=== PATIENT | male | born 1940 | race Caucasian/White ===

== ENCOUNTER 2017-05-14 08:41 | Day surgery (SDC) | payer MEDICARE ==
[~2017-05-14] VITALS: Ht 186.7 cm; Wt 98.9 kg
[2017-05-14] VITALS (7 sets, daily range): BP systolic 109–133; BP diastolic 50–58; PULSE 47–54; RESP 14–18; O2SAT 92–97
[~2017-05-14 08:41] MED LIST: ALBU8.5H2 INHALATION; CITA40TA PO; Clindamycin Inj 600 MG in IV Premix 1 EACH IV ONE; ESZO2TAB38 PO; FLUT9.9S NS; HYDR12.55 PO; KETACONAZOLE SHAMPOO TP; KETACONAZOLE TP; Lactated Ringer's 1,000 ML IV SCH; OXYC-466 PO; PANT40TA2 PO; RNT300T PO; TAMS0.4C98 PO; TRAZ-118 PO; hydrocortisone cream TP
[2017-05-14] MEDS ORDERED: Dexamethasone 4 mg/mL Inj ONE (08:42)
[2017-05-14] MEDS ORDERED: Rocuronium 10 mg/mL 5 mL Inj ONE (08:42)
[2017-05-14] MEDS ORDERED: fentaNYL-PF 50 mCg/mL 2 mL Inj ONE (08:42)
[2017-05-14] MEDS ORDERED: Neostigmine 1 mg/mL 10 mL Inj ONE (08:42)
[2017-05-14] MEDS ORDERED: EPHEDrine/NS 5 mg/mL 5 mL Syringe ONE (08:42)
[2017-05-14] MEDS ORDERED: Phenylephrine/NS 100 mCg/mL 10 mL Syringe IVPUSH ONE (08:42)
[2017-05-14] MEDS ORDERED: Propofol 10,000 mCg/mL 20 mL Inj ONE (08:42)
[2017-05-14] MEDS ORDERED: Glycopyrrolate 0.2 MG/ML 1mL Inj ONE ×2 (08:42)
[2017-05-14] MEDS ORDERED: Ondansetron 2 mg/mL 2 mL Inj ONE (08:42)
[2017-05-14] MEDS: Lactated Ringer's 1,000 ML IV SCH ×2 (08:59→11:03)
[2017-05-14] MEDS ORDERED: GABA600T2 PO (09:08)
[2017-05-14] MEDS ORDERED: Lactated Ringer's 500 ML IV PRN (10:04)
[2017-05-14] MEDS ORDERED: Lactated Ringer's 1,000 ML IV SCH (10:04)
--- NOTE | 2017-05-14 10:04 | PCM.HPANE ---
Patient Data Surgeon Admitting Provider: Attending Provider:Yvon Herron DPM Primary Care Physician:Tere Franco DO Other Provider:Saumya Gaona Anesthesia Reason for Visit Right Ankle Post-Traumatic Arthritis, Instability Ht/WT & BMI Height (Feet): 6 Height (Inches): 0 Weight (Kilograms): 102.9 Body Mass Index 30.00 Allergies Coded Allergies: Penicillins (Verified Allergy, Severe, ANAPHYLAXIS, 05/11/17) lisinopril (Verified Allergy, Severe, I swell up , 05/11/17) NSAIDS (Non-Steroidal Anti-Inflamma (Verified Allergy, Intermediate, INTOLERANT OF R/T PUD, 05/11/17) metoclopramide (Verified Adverse Reaction, Severe, Agitation, 05/11/17) Per patient Anesthesiologist told him it made him 'Crazy' morphine (Verified Adverse Reaction, Severe, Intravenous MS causes vomiting, 05/11/17) Uncoded Allergies: HIGH FRACTOSE CORN SYRUP (Adverse Reaction, Severe, HEARTBURN,DIARRHEA, 07/26) Past Anesthesia History Anesthesia History: Positive for:: Anesthesia Reactions (SLOW TO WAKE UP-HX OF PANIC ATTACKS PRIOR TO ANESTHETICS), Denies:: Abnormal Airway, Difficult Intubation, Fam Anesthesia Reaction, Fam Malignant Hypertherm, Malignant Hyperthermia Additional Information: Reports history of cardiac arrest under GA due to anxiety ~ 18 year ago. Has had multiple anesthetics since then without problems. Denies any history of MH or any family history of MH. Diabetes History Hx Diabetes?: No MRSA MRSA: No Medications Home Meds Incl Beta [place]: No Reported Medications Gabapentin 600 Mg Yuryrk904 Mg PO TID #90 05/14/17 Ranitidine (Zantac)300 Mg Jkzydl886 Mg PO DAILY Ref 0 03/20/16 Trazodone 100 Mg Uwaiyc235 Mg PO HS Ref 0 03/20/[address] (Protonix)40 Mg Vhglfv83 Mg PO DAILY Ref 0 03/20/16 Albuterol HFA (Proair HFA)8.5 Gm Hfa.aer.ad2 Puffs INHALATION Q4H #1 INHALER 03/20/16 oxyCODONE-Acetaminophen 10-325 mg 1 Each Tablet1 Tablet PO Q8H PRN For Pain Ref 0 03/20/16 Eszopiclone (Lunesta)2 Mg Tablet2 Mg PO HS PRN For Sleep 03/20/16 [hydrocortisone cream] No Conflict Check1 Applic TP M,W,F 2.5% 03/20/16 [ketaconazole cream] No Conflict Check1 Applic TP BID 2% 03/20/16 [ketaconazole shampoo] No Conflict Check1 Applic TP 2x/wk 2% 03/20/16 Hydrochlorothiazide 12.5 Mg Snfxoj49.5 Mg PO DAILY 30 Days Ref 0 03/20/16 Fluticasone Propionate (Flonase Allergy Relief)50 Mcg/Actuation [place].susp9.9 Ml NS prn 03/20/16 Tamsulosin (Flomax)0.4 Mg Capsule0.4 Mg PO DAILY Ref 0 03/20/16 Citalopram Hydrobromide (Celexa)40 Mg Enfuws98 Mg PO DAILY Ref 0 03/20/16 Discontinued Reported Medications Guaifenesin/Codeine Phosphate (Guaifenesin AC Cough Syrup)473 Ml Mgkygb86 Ml PO BID PRN prn 03/20/16 Gabapentin 100 Mg Tjvriyw830 Mg PO TID 30 Days Ref 0 03/20/16 Tadalafil (Cialis)20 Mg Nlzibr96 Mg PO PRN PRN ed Ref 0 As directed by physician. 03/20/16 Discontinued Scripts Prednisone (PredniSONE)20 Mg Btnlvf78 Mg PO DAILY #12 TABLET Prov:Regino Zheng MD 07/31/16 History History of ENT Problems?: Yes HEENT History: Positive for:: Dysphagia (HX OF) Hearing Problem Sinus Problem (S/P RHINOPLASTY) Denies:: Abnormal Airway Cataracts (removed) Difficult Intubation Glaucoma TMJ Denture Type: None Teeth Condition: Within Normal Limits Hx of Heart Problems?: Yes Cardiovascular History: Positive for:: Abdominal Aortic Aneurism (S/P AAA RPR W/ STENT) Chest Pain (DEEMED NON-CARDIAC, R/T REFLUX 10/2011) Hypertension (hyperlipidemia) Denies:: AICD Atrial Fibrillation Cardiac Surgery Congestive Heart Failure Coronary Artery Disease Edema Heart Murmur Irregular Heartbeat Pacemaker Peripheral Vascular Rheumatic Fever Thrombophlebitis Valvular Heart Disease Hx of Respiratory Problem?: Yes Respiratory History: Positive for:: Cough (allergy related) 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) Pneumonia (FREQUENT PNEUMONIA/BRONCHITIS) Use of Inhalers / NEBS (Pro Air) Denies:: Asthma COPD Chest Surgery Emphysema Hemoptysis Pulmonary Embolism Tuberculosis Use of C-PAP Machine Hx Neurologic Problems?: Yes Neurological History: Positive for:: Headaches (POST-TRAUMATIC/HX CONCUSSION) Denies:: Alzheimer's Disease CVA Dementia Dizziness Multiple Sclerosis Parkinson's Disease Seizures TIA Hx of GI Problems?: Yes Hx of Problems?: Yes Genitourinary History: Positive for:: Kidney Stones (S/P LT CYSTO/STENT/ESWL) Denies:: HX of Hemodialysis Urinary Tract Infection HX of Peritoneal Dialysis: No Male Hx: Positive for:: Prostate Problems (MILD BPH) Denies:: Scrotal Mass Testicular Surgery Skin History: Positive for:: History Skin Disorders? (INTERMITTANT RASHES, DRY SKIN) Denies:: Pressure Ulcers Hx Musculoskeletal Problems?: No Musculoskeletal History: Positive for:: Back Injury (C/OF CHRONIC LOW BACK PAIN-USES TENS PRN) Degenerative Joint Joint Replacement (S/P LT TKA X2,RT TKA) Musculoskeletal Trauma (HX OF L3,L5 FX S/P RT ROTATOR CUFF RPR,LT WRIST FUSION,I&D LT WRIST) Osteoarthritis Denies:: Fibromyalgia Myasthenia Gravis Rheumatoid Arthritis Systemic Lupus Hx of Psycho/Social Problems?: Yes Psycho Social History: Positive for:: Anxiety Hx Depression Hx Surgeries?: Yes (BILAT TKA'S,GANGLION EXC-HAND,TRIGGER FINGER,AAA RPR,BACK- NECK-SKULL SURG.,) Hx Any Other Health Problems?: Yes Other History: Positive for:: Hospitalization (PNEUMONIA, CONCUSSION) Denies:: Cancer Endocrine Disease (C/OF NIGHT SWEATS) Thyroid Disease History Blood Transfusions: Positive for:: Accept Blood Products? Denies:: Blood Transfusions Hx Diabetes: No Hx Alcohol Use: NoHx Substance Use: No Smoking Status: Never Smoker Have You Smoked inLast 12 mo: No Stop/Bang S-Snoring: Do You Snore Loudly: No T-Tired: feel tired, fatigued: No O-Obsered: Observed not breath: No P-Blood Pressure: treated: No B- Body Mass Index > 35 kg/m2: Yes A- Age over 50: Yes N- Neck Large Circumference: No G- Gender Male: Yes ANITA Total Score: 3 ANITA Risk Assessment: High Risk, =/>3 Yes Risk Assessment Category Category 1A: Patient has history of documented sleep apnea, and HAS NOT received any narcotic, sedative or anesthesia administration during this stay. Category 1B: Patient has history of documented sleep apnea, and HAS received any narcotic , sedative or anesthesia administration during this stay Category 2: Patient has SUSPECTED Obstructive Sleep Apnea, and HAS received any narcotic , sedative or anesthesia administration during this stay. Category 3: Patient has SUSPECTED Obstructive Sleep Apnea and HAS NOT received narcotic, sedative or anesthesia administration during this stay. Category 4: Outpatient in Procedural Areas with known sleep apnea or who screen positive for High Risk via the STOP/BANG questionnaire. Exam Exam General Appearance: Alert HEENT/AIRWAY: MP 1, Neck Movement (FROM, 3 FB) Lungs: Clear to Auscultation Heart: Regular Rate/Rhythm Meds/Labs/Diagnostics Admission Meds Current Medications Lactated Ringer's (Lr) 1,000 ml @ 120 mls/hr Q8H20M IV Last administered on 08:59; Start 05/14/17 at 05:00; Stop 05/14/17 at 13:19 Plan Impression Patient chart reviewed, patient interviewed and anesthestic plan with risks, benefits, and alternatives discussed, and informed consent obtained. NPO per Anesth. Guidelines: Yes ASA Physical Status: ASA3 Severe Disease Anesthetic Plan: GA Bene/Risks/Altern/Consents: Yes HP Complete Prior to Induction: Yes Jasbir Mariee MD May 14, 2017 09:10
[2017-05-14] MEDS ORDERED: Dexamethasone 4 mg/mL Inj IVPUSH PRN (10:05)
[2017-05-14] MEDS ORDERED: Phenylephrine 10,000 mCg/mL Inj IVPUSH PRN (10:05)
[2017-05-14] MEDS ORDERED: fentaNYL-PF 50 mCg/mL 2 mL Inj IVPUSH PRN (10:05)
[2017-05-14] MEDS ORDERED: EPHEDrine Sulfate 50 mg/mL Inj IVPUSH PRN (10:05)
[2017-05-14] MEDS ORDERED: Ondansetron 2 mg/mL 2 mL Inj IVPUSH PRN (10:05)
[2017-05-14] MEDS ORDERED: HYDROmorphone 1 mg/mL Inj IVPUSH PRN (10:05)
[2017-05-14] MEDS ORDERED: Bupivacaine-MPF 0.5% W/EPI 30 mL Inj INFILTRATE ONE (11:03)
[2017-05-14] MEDS ORDERED: oxyCODONE-Acetamin 5-325 mg Tablet PO PRN (12:10)
--- NOTE | 2017-05-14 12:57 | PCM.ANEP1 ---
Post Anesthesia PACU Phase 1 Assessment Vital Signs Vital Signs Date Time Temp Pulse Resp B/P Pulse Ox O2 Delivery O2 Flow Rate FiO2 05/14/17 12:30 54 18 120/53 95 Room Air 05/14/17 12:25 53 16 124/52 93 Room Air 05/14/17 12:20 52 15 125/50 92 Room Air 05/14/17 12:10 36.5 54 14 133/58 94 Room Air 05/14/17 09:08 36.5 47 16 109/55 96 Room Air Anesthetic Administered: GA Level of Alertness: Awake, talking VAZQUEZ's with Equal Strength: Yes Pain: No Nausea or Vomiting: No CV Function & Hydration Stable: Yes Airway Device: Oxygen Delivery: Simple Mask Lungs: Clear to Auscultation PACU Phase 2 Assessment Complications: No Follow up Care: N/A Patient Instructions Provided: N/A Jasbir Mariee MD May 14, 2017 12:57
--- NOTE | 2017-07-06 08:27 | PCM.PODPO ---
Podiatry Operative Report Date of Service: May 14, 2017 Date of Service May 14 2017 Pre Operative Diagnosis Post traumatic arthritis right ankle Lateral ankle instability right lower extremity Os trigonum syndrome right lower extremity Post Operative Diagnosis Same as preoperative diagnoses Procedure Arthroscopic debridement of right ankle with extensive soft tissue debridement Lateral ankle stabilization Excision of os trigonum right ankle Surgeon Surgeon: Yvon Herron DPM Assistants: None Indication for Procedure Painful right ankle and os trigonum with instability of the right lateral ankle Findings Large os trigonum the right ankle with moderate to severe soft tissue disease of the tibiotalar joint Details of Procedure Patient was identified in the preoperative holding area. All preoperative comorbidities and allergies were identified and thoroughly discussed. The patient was transported into the operating room and placed on the operating room table in the normal supine position. The patient was then prepped and draped in normal aseptic technique. General anesthesia was induced by the anesthesia service. An ankle distractor was placed around the right ankle and gentle distraction was performed. A spinal needle was inserted into the medial aspect of the ankle joint taking care to avoid medial neurovascular structures and the tibialis anterior tendon. The ankle joint was then infiltrated with a large amount of normal saline. A stab incision was made over the spinal needle and a hemostat was inserted into the medial aspect of the ankle joint taking care not to contact the articular surface of either the tibial or talus. The cannula and trocar were then inserted into the medial aspect of the ankle and the camera was then inserted in place of the trocar. A lateral portal was then accessed taking care to avoid local neurovascular and soft tissue structures. Inspection of the tibiotalar joint revealed severe anterior synovitis. Extensive debridement of the tibiotalar joint was performed primarily consisting of the anterior ankle capsule and medial and lateral gutter. Inspection of the articular surface of the tibia and talus revealed healthy intact articular cartilage without significant noted deficit. Following extensive debridement the ankle was copiously flushed with normal saline. The anterior ankle portals were then sutured utilizing 3-0 Prolene. A curvilinear incision approximately 7 cm in length was made over the posterior lateral aspect of the right ankle slightly posterior to the fibula this was carried distally extending towards the base of the fourth metatarsal. Once through the initial layer skin all subcutaneous neurovascular structures were identified and retracted out of the surgical field. Blunt dissection was performed with a Metzenbaum scissor through subcutaneous tissue and gentle retraction was performed with a week later. Careful dissection was performed to identify the anterior talofibular ligament and calcaneofibular ligament insertions. Approximately 4 mm of the proximal aspect of the plantar talofibular ligament and calcaneofibular ligament were then sectioned. 2 number 2. 4 suture anchors were then inserted into the fibula at the location of the anterior talofibular ligament insertion as well as the calcaneofibular ligament insertion. The attached FiberWire suture was then utilized to reapproximate lateral ankle ligaments under moderate tension with the foot placed into a dorsiflexed and everted position. The extensor retinaculum was then sutured into place overlying the ligament insertion again with the foot in a dorsiflexed and everted position providing significant stability of the lateral ankle. Following repair the ankle was noted to have a negative talar tilt and negative anterior drawer. Attention was then paid to the posterior aspect of the right ankle blunt dissection was carried down posterior to the peroneal tendon sheath toward the posterior aspect of the tibiotalar joint. Direct visualization of the extensor hallucis longus tendon was performed and an enlarged os trigonum was noted. The os trigonum was carefully excised utilizing a rongeur and Metzenbaum scissor taking care not to damage the extensor hallucis longus tendon. This wound was ankle was a flush with large amounts of normal saline. The lateral ankle incision was closed utilizing number 3. 0 Vicryl for deep suture and 3. 0 Prolene for skin. The patient was then placed into a dressing consisting of Adaptic sterile 4 x 4 gauze Kerlix and a Alvarez style compression dressing under moderate compression with a posterior splint. No complications occurred during this procedure the patient was awoken by anesthesia and transported out of the operating room. Grafts, Implants: Implants-See Implant Record Complications There were no periprocedural complications identified. Condition Stable Anesthetic Administered: GA Catheters: None Output, Estimated Blood Loss: 30 Blood Admin during surgery: No Surgical Cast or Splint: Well-padded Short Leg Splint Surgical Specimen Removed: No Specimen sent to Pathology: No Post Operative Plan Discharge to home when stable keep dressing clean dry and intact Follow-up in 1 week Yvon Herron DPM Jul 06, 2017 08:27
[2017-07-06] MEDS ORDERED: CITA40TA PO (09:51)
[2017-07-06] MEDS ORDERED: RNT300T PO (09:51)
[2017-07-06] MEDS ORDERED: KEN1C EXT (09:51)
[2017-07-06] MEDS ORDERED: ALBU8.5H2 INHALATION (09:51)
[2017-07-06] MEDS ORDERED: PANT40TA2 PO (09:51)
[2017-07-06] MEDS ORDERED: HYDR30CR98 RC (09:51)
[2017-07-06] MEDS ORDERED: GABA-500 PO (09:51)
[2017-07-06] MEDS ORDERED: FLUT16SP NS (09:51)
[2017-07-06] MEDS ORDERED: KETO120S3 TP (09:51)
[2017-07-06] MEDS ORDERED: KTC2C15 TP (09:51)
[2017-07-06] MEDS ORDERED: ESZO2TAB38 PO (09:51)
[2017-07-06] MEDS ORDERED: TRAZ-118 PO (09:51)
[2017-07-06] MEDS ORDERED: OXYC-466 PO (09:51)
[2017-07-06] MEDS ORDERED: TAMS0.4C98 PO (09:51)
== END 2017-05-14 23:59 | disposition home or self-care (01) ==
LOC: SAS 08:41
PROVIDERS: ATTEND Podiatrist Foot & Ankle Surgery
DX: M19.171 Post-traumatic osteoarthritis, right ankle and foot (principal); M25.371 Other instability, right ankle; Q68.8 Other specified congenital musculoskeletal deformities; I10 Essential (primary) hypertension; E78.5 Hyperlipidemia, unspecified; M54.17 Radiculopathy, lumbosacral region; K21.9 Gastro-esophageal reflux disease without esophagitis
CPT/HCPCS: 27698; 28120; 29898; 76000; C1713; J1100; J2250; J2370; J2405; J2710; J3010; J7120

== ENCOUNTER → 2017-07-08 | Day surgery (SDC) | payer MEDICARE, OTHER ==
[2017-07-08] VITALS (10 sets, daily range): BP systolic 111–159; BP diastolic 39–61; PULSE 57–67; RESP 10–18; O2SAT 91–97
[~2017-07-08] VITALS: Ht 185.4 cm; Wt 102.5 kg
[~2017-07-08] MED LIST changes: +Albuterol-Ipratropium 3 mL Inhalation Solution NEB PRN; +Atropine 0.4 mg/mL Inj IVPUSH PRN; -Clindamycin Inj 600 MG in IV Premix 1 EACH IV ONE; +Clindamycin Inj 900 MG in IV Premix 1 EACH IV ONE; +Dexamethasone 4 mg/mL Inj ONE; +EPHEDrine Sulfate 50 mg/mL Inj IVPUSH PRN; +EPHEDrine/NS 5 mg/mL 5 mL Syringe ONE; +FLUT16SP NS; -FLUT9.9S NS; +GABA-500 PO; -HYDR12.55 PO; +HYDR30CR98 RC; +HYDROmorphone 1 mg/mL Inj IVPUSH PRN; +HYDROmorphone 1 mg/mL Inj ONE; +KEN1C EXT; -KETACONAZOLE SHAMPOO TP; -KETACONAZOLE TP; +KETO120S3 TP; +KTC2C15 TP; +Labetalol 5 mg/mL 20 mL Inj IV PRN; +Lactated Ringer's 1,000 ML IV ONE; +Lactated Ringer's 500 ML IV PRN; +Ondansetron 2 mg/mL 2 mL Inj IVPUSH PRN; +Ondansetron 2 mg/mL 2 mL Inj ONE; +Phenylephrine 10,000 mCg/mL Inj IVPUSH PRN; +Propofol 10,000 mCg/mL 20 mL Inj ONE; +fentaNYL-PF 50 mCg/mL 2 mL Inj IVPUSH PRN; +fentaNYL-PF 50 mCg/mL 2 mL Inj ONE; -hydrocortisone cream TP; +oxyCODONE-Acetamin 5-325 mg Tablet PO PRN
--- NOTE | 2017-07-08 10:43 | PCM.HPANE ---
Patient Data Surgeon Admitting Provider: Attending Provider:Luke Kc DO Primary Care Physician:Tere Franco DO Other Provider:Saumya Gaona Anesthesia Reason for Visit Left Wrist Retained Painful Hardware,Paresthesia Ht/WT & BMI Height (Feet): 6 Height (Inches): 1 Weight (Kilograms): 102.5 Body Mass Index 29.00 Allergies Coded Allergies: Penicillins (Verified Allergy, Severe, ANAPHYLAXIS, 07/06/17) lisinopril (Verified Allergy, Severe, I swell up , 07/06/17) NSAIDS (Non-Steroidal Anti-Inflamma (Verified Allergy, Intermediate, INTOLERANT OF R/T PUD, 07/06/17) metoclopramide (Verified Adverse Reaction, Severe, Agitation, 07/06/17) Per patient Anesthesiologist told him it made him 'Crazy' morphine (Verified Adverse Reaction, Severe, Intravenous MS causes vomiting, 07/06/17) Uncoded Allergies: HIGH FRACTOSE CORN SYRUP (Adverse Reaction, Severe, HEARTBURN,DIARRHEA, 07/26) Past Anesthesia History Anesthesia History: Positive for:: Anesthesia Reactions (SLOW TO WAKE UP-HX OF PANIC ATTACKS PRIOR TO ANESTHETICS), Denies:: Abnormal Airway, Difficult Intubation, Fam Anesthesia Reaction, Fam Malignant Hypertherm, Malignant Hyperthermia Diabetes History Hx Diabetes?: No MRSA MRSA: No Medications Reported Medications Ranitidine (Zantac)300 Mg Ijfeye196 Mg PO DAILY Ref 0 07/06/17 Triamcinolone Acet (Triamcinolone Acetonide Cream)1 Applic/0.25 Gm Cr1 Applic EXT BID #60 GM Ref 0 07/06/17 Trazodone 100 Mg Lqhqhm979 Mg PO HS Ref 0 07/06/[address] (Protonix)40 Mg Jifmfs67 Mg PO DAILY Ref 0 07/06/17 Albuterol HFA (Proair HFA)8.5 Gm Hfa.aer.ad2 Puffs INHALATION Q4H #1 INHALER 07/06/17 oxyCODONE-Acetaminophen 10-325 mg 1 Each Tablet1 Tablet PO Q4H PRN For Pain Ref 0 07/06/17 Eszopiclone (Lunesta)2 Mg Tablet2 Mg PO HS PRN sleep 07/06/17 Ketoconazole 15 Gm Cream..g.15 Gm TP BID 07/06/17 Ketoconazole 120 Ml Qxjjyxo507 Ml TP twice a week 07/06/17 Hydrocortisone 2.5 % Cream.appl30 Gm RC BID 07/06/17 Gabapentin 100 Mg Povvmxv202 Mg PO TID 30 Days Ref 0 07/06/17 Fluticasone Propionate (Fluticasone Propionate Nasal)16 Gm [place].susp2 [place] NS DAILY #16 GM Ref 0 07/06/17 Tamsulosin (Flomax)0.4 Mg Capsule0.4 Mg PO DAILY Ref 0 07/06/17 Citalopram Hydrobromide (Celexa)40 Mg Adrfiw68 Mg PO DAILY Ref 0 07/06/17 Discontinued Reported Medications Gabapentin 600 Mg Ilpdyq983 Mg PO TID #90 05/14/17 Ranitidine (Zantac)300 Mg Phrxih570 Mg PO DAILY Ref 0 03/20/16 Trazodone 100 Mg Rxeyqe201 Mg PO HS Ref 0 03/20/[address] (Protonix)40 Mg Zwcshh03 Mg PO DAILY Ref 0 03/20/16 Albuterol HFA (Proair HFA)8.5 Gm Hfa.aer.ad2 Puffs INHALATION Q4H #1 INHALER 03/20/16 oxyCODONE-Acetaminophen 10-325 mg 1 Each Tablet1 Tablet PO Q8H PRN For Pain Ref 0 03/20/16 Eszopiclone (Lunesta)2 Mg Tablet2 Mg PO HS PRN For Sleep 03/20/16 [hydrocortisone cream] No Conflict Check1 Applic TP M,W,F 2.5% 03/20/16 [ketaconazole cream] No Conflict Check1 Applic TP BID 2% 03/20/16 [ketaconazole shampoo] No Conflict Check1 Applic TP 2x/wk 2% 03/20/16 Hydrochlorothiazide 12.5 Mg Nyqyzh77.5 Mg PO DAILY 30 Days Ref 0 03/20/16 Fluticasone Propionate (Flonase Allergy Relief)50 Mcg/Actuation [place].susp9.9 Ml NS prn 03/20/16 Tamsulosin (Flomax)0.4 Mg Capsule0.4 Mg PO DAILY Ref 0 03/20/16 Citalopram Hydrobromide (Celexa)40 Mg Adcrrh87 Mg PO DAILY Ref 0 03/20/16 History History of ENT Problems?: Yes HEENT History: Positive for:: Dysphagia (HX OF) Hearing Problem Sinus Problem (S/P RHINOPLASTY) Denies:: Abnormal Airway Cataracts (removed) Difficult Intubation TMJ Denture Type: None Teeth Condition: Within Normal Limits Hx of Heart Problems?: Yes Cardiovascular History: Positive for:: Abdominal Aortic Aneurism (S/P AAA RPR W/ STENT) Chest Pain (DEEMED NON-CARDIAC, R/T REFLUX 10/2011) Hypertension (hyperlipidemia) Denies:: AICD Atrial Fibrillation Cardiac Surgery Congestive Heart Failure Coronary Artery Disease Edema Heart Murmur Irregular Heartbeat Pacemaker Peripheral Vascular Rheumatic Fever Thrombophlebitis Valvular Heart Disease Hx of Respiratory Problem?: Yes Respiratory History: Positive for:: Asthma Cough (allergy related) 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) Pneumonia (FREQUENT PNEUMONIA/BRONCHITIS) Denies:: COPD Chest Surgery Emphysema Hemoptysis Oxygen Administration Pulmonary Embolism Tuberculosis Use of C-PAP Machine Use of Inhalers / NEBS Hx Neurologic Problems?: Yes Neurological History: Positive for:: Headaches (POST-TRAUMATIC/HX CONCUSSION) Denies:: Alzheimer's Disease CVA Dementia Dizziness Multiple Sclerosis Parkinson's Disease Seizures Hx of GI Problems?: Yes Gastrointestinal History: Denies:: Cirrhosis Diverticulitis Gall Bladder Disease Gastroesphageal Reflux Gastrointestinal Bleeding Heartburn Hepatitis Hiatal Hernia Liver Disease Rectal Bleeding Hx of Problems?: Yes Genitourinary History: Positive for:: Kidney Stones (S/P LT CYSTO/STENT/ESWL) Denies:: HX of Hemodialysis Urinary Tract Infection HX of Peritoneal Dialysis: No Male Hx: Positive for:: Prostate Problems (MILD BPH) Denies:: Scrotal Mass Testicular Surgery Skin History: Positive for:: History Skin Disorders? (INTERMITTANT RASHES, DRY SKIN) Denies:: Pressure Ulcers Hx Musculoskeletal Problems?: No Musculoskeletal History: Positive for:: Back Injury (C/OF CHRONIC LOW BACK PAIN-USES TENS PRN) Degenerative Joint Joint Replacement (S/P LT TKA X2,RT TKA) Musculoskeletal Trauma (HX OF L3,L5 FX S/P RT ROTATOR CUFF RPR,LT WRIST FUSION,I&D LT WRIST) Osteoarthritis Denies:: Fibromyalgia Myasthenia Gravis Systemic Lupus Hx of Psycho/Social Problems?: Yes Psycho Social History: Positive for:: Anxiety Hx Depression Denies:: Bipolar Disorder Suicide Attempt Hx Surgeries?: Yes (BILAT TKA'S,GANGLION EXC-HAND,TRIGGER FINGER,AAA RPR,BACK- NECK-SKULL SURG.,) Hx Any Other Health Problems?: Yes Other History: Positive for:: Hospitalization (PNEUMONIA, CONCUSSION) Denies:: Cancer Endocrine Disease (C/OF NIGHT SWEATS) Thyroid Disease History Blood Transfusions: Positive for:: Accept Blood Products? Denies:: Blood Transfusions Hx Diabetes: No Hx Alcohol Use: NoHx Substance Use: No Smoking Status: Never Smoker Have You Smoked inLast 12 mo: No Stop/Bang S-Snoring: Do You Snore Loudly: No T-Tired: feel tired, fatigued: Yes O-Obsered: Observed not breath: No P-Blood Pressure: treated: Yes B- Body Mass Index > 35 kg/m2: Yes A- Age over 50: Yes N- Neck Large Circumference: No G- Gender Male: Yes ANITA Total Score: 5 Risk Assessment Category Category 1A: Patient has history of documented sleep apnea, and HAS NOT received any narcotic, sedative or anesthesia administration during this stay. Category 1B: Patient has history of documented sleep apnea, and HAS received any narcotic , sedative or anesthesia administration during this stay Category 2: Patient has SUSPECTED Obstructive Sleep Apnea, and HAS received any narcotic , sedative or anesthesia administration during this stay. Category 3: Patient has SUSPECTED Obstructive Sleep Apnea and HAS NOT received narcotic, sedative or anesthesia administration during this stay. Category 4: Outpatient in Procedural Areas with known sleep apnea or who screen positive for High Risk via the STOP/BANG questionnaire. Exam Exam General Appearance: Alert, Oriented X3, Cooperative, No Acute Distress HEENT/AIRWAY: MP 2, Neck Movement (FROM), Mouth Opening (3 FBMO) Lungs: Clear to Auscultation, Normal Air Movement Heart: Exam Unremarkable, Regular Rate/Rhythm, No Murmurs/Rubs/Gallops Plan Impression Patient chart reviewed, patient interviewed and anesthestic plan with risks, benefits, and alternatives discussed, and informed consent obtained. NPO per Anesth. Guidelines: Yes ASA Physical Status: ASA2 Mod Systemic Disease Anesthetic Plan: GA Bene/Risks/Altern/Consents: Yes HP Complete Prior to Induction: Yes Mani Ivy MD Jul 08, 2017 08:20
--- NOTE | 2017-07-08 12:31 | PCM.ANEP1 ---
Post Anesthesia PACU Phase 1 Assessment Vital Signs Vital Signs Date Time Temp Pulse Resp B/P Pulse Ox O2 Delivery O2 Flow Rate FiO2 07/08/17 12:25 37.3 57 12 112/55 94 Nasal Cannula 2 07/08/17 12:20 57 10 125/51 94 Nasal Cannula 2 07/08/17 12:15 60 13 118/54 94 Nasal Cannula 2 07/08/17 12:10 63 15 115/51 91 Room Air 07/08/17 12:05 62 15 115/54 97 Simple Mask 10 07/08/17 12:00 36.6 67 17 111/47 96 Simple Mask 8 07/08/17 08:38 36.2 57 18 159/58 96 Room Air Level of Alertness: Awake, talking VAZQUEZ's with Equal Strength: Yes Pain: No Nausea or Vomiting: No CV Function & Hydration Stable: Yes Airway Device: n/a Oxygen Delivery: Simple Mask Lungs: Clear to Auscultation, Normal Air Movement Dermatome Level: Full Sensation PACU Phase 2 Assessment Complications: No Follow up Care: N/A Patient Instructions Provided: N/A Mani Ivy MD Jul 08, 2017 12:31
--- NOTE | 2017-07-09 05:08 | OP ---
[address] [address] OPERATIVE REPORT PATIENT: ELIZA MELCHOR : 1940 MR#: [id number] ADMIT: 07/08/2017 JOB ID: [id number] DATE OF SURGERY: 07/08/2017 PREOPERATIVE DIAGNOSIS(ES): 1. Left wrist deep retained orthopedic hardware that is painful. 2. Left dorsal radial sensory nerve pain. POSTOPERATIVE DIAGNOSIS(ES): 1. Left wrist deep retained orthopedic hardware that is painful. 2. Left dorsal radial sensory nerve pain. PROCEDURE: 1. Removal of left wrist deep hardware. 2. Left wrist dorsal sensory radial nerve transection. SURGEON: Luke Kc DO. ANESTHESIA: General. INDICATION: The patient is a 77-year-old male that originally presented to me with a nonunion following a four-corner fusion performed at an outlying facility, with persistent pain. I discussed with the patient options, including revision versus total wrist arthrodesis, which he opted to proceed with as he already had very limited motion to the wrist. Total wrist arthrodesis was performed with some delayed healing. The patient had a series of CTs obtained after utilization of a bone stimulator and finally demonstrated consolidation of the fusion site. He continued to have pain surrounding the fusion site along the radial aspect of the plate, as well as dorsal radial nerve pain. The nerve was found to be intact with electrodiagnostic findings, but he continued to have significant pain even with light touch to the dorsal radial aspect of the hand. He did have some relief with a local anesthetic injection and I gave the patient option to proceed with hardware removal and neurolysis with wrapping versus nerve transection. Patient opted for hardware removal with nerve transection as he wants to eliminate any further possible surgeries, and he opted for numbness in this area rather than pain. He understood the risks include, but not limited to, neurovascular injury, tendon injury, infection, failure of fixation, stiffness, persistent pain, all of which would require further intervention. Patient had all questions answered. Consent was signed and placed in the chart. PROCEDURE IN DETAIL: The patient was brought to the operative suite and placed spine on operative table. A surgical time-out performed. Everybody in the room was in agreement. After appropriate anesthesia was obtained, left upper arm tourniquet was applied and the left upper extremity was prepped and draped in sterile fashion. Left upper extremity was then exsanguinated and tourniquet inflated to 250 mmHg. The patient's previous dorsal incision was utilized. Large skin flaps were then raised. The interval between the 3rd and 4th dorsal compartment was entered and the extensor tendons, as well as the fibrous tissue overlying the dorsal fusion plate was identified. Soft tissues were freed up first distally to the plate overlying the 3rd metacarpal. The four distal screws were easily identified and removed. Three were within the metacarpal and one within the capitate. Dissection was then carried out proximally to expose the remaining four screws within the shaft. These were manually removed without complication. Additional bone growth was noted surrounding the edges of the plate, which was further freed up utilizing a series of osteotomes, as well as a rongeur. Plate was then removed in its entirety. The residual bony overgrowth at the edges of the plate, as well as the screw holes were then debrided with a rongeur and smoothed back until no remaining sharp edges remained. Copious irrigation was then performed. The deep periosteum was then closed with Vicryl, followed by closure of the retinaculum split between the 4th and 3rd dorsal compartments as previously the 3rd dorsal compartment extensor pollicis longus was left outside of the retinaculum. The overlying skin was then closed with a series of running 5-0 nylon suture. Attention was then turned toward isolation of the dorsal radial sensory nerve. A curvilinear incision was made approximately 6-8 cm proximal to the radial styloid. Dissection was carried down to expose the superficial branch of the radial nerve between the brachioradialis and extensor carpi radialis longus. The nerve was freed up proximally between this interval. The dorsal radial branch was identified and further neurolysed from the volar branch on the superficial radial nerve. The neurolysis and split was carried back as far proximally as possible. Next, the nerve was transected distally. The end of the nerve was capped utilizing electrocautery, utilizing a mosquito clamp two additional areas were further compressed and the nerve then looped back upon itself and delivered underneath the brachioradialis muscle. Tisseel mix was utilized to seal off the end of the nerve stump within its new bed underneath the brachioradialis muscle. Further irrigation was performed, followed by closure of the radial incision utilizing 4-0 nylon. The patient was then placed into a well-padded, well-molded volar resting splint. ESTIMATED BLOOD LOSS: Less than 1 cc. COMPLICATIONS: None. DISPOSITION: The patient tolerated the procedure well. Anesthesia was reversed and the patient was transferred to PACU for recovery. SPECIMENS: A dorsal Synthes wrist fusion plate with a combination of eight screws. POSTOPERATIVE PLAN: The patient will follow up in my office in two weeks. I will remove the patient's sutures at that time and have him start working on range of motion and scar massage/mobilization, as well as desensitization exercises. [facility]
== END | disposition home or self-care (01) ==
LOC: SAS 07:55
PROVIDERS: ATTEND Orthopaedic Surgery
DX: T84.84XA Pain due to internal orthopedic prosthetic devices, implants and grafts, initial encounter (principal); R20.2 Paresthesia of skin; G58.8 Other specified mononeuropathies; I10 Essential (primary) hypertension; E78.5 Hyperlipidemia, unspecified; M54.17 Radiculopathy, lumbosacral region; K21.9 Gastro-esophageal reflux disease without esophagitis; F41.8 Other specified anxiety disorders; J45.909 Unspecified asthma, uncomplicated; Z96.89 Presence of other specified functional implants; Z87.442 Personal history of urinary calculi; Z96.653 Presence of artificial knee joint, bilateral
CPT/HCPCS: 20680; 64772; J3490; J7120